=== PATIENT | male | born 1970 | race Caucasian/White ===

== ENCOUNTER 2020-04-24 16:06 | Observation (INO) ==
[2020-04-24 16:54] LABS: INR 1.1; Prothrombin Time 12.7 Seconds (9.4-12.1)
[2020-04-24 16:56] LABS: Basophils % 0.6 %; Eosinophils # 0.1 K/mcL (0.0-0.6); Eosinophils % 1.7 %; Hematocrit 46.1 % (37.5-50.1); Hemoglobin 15.7 g/dL (12.9-16.9); Immature Granulocytes % 0.3 % (0-4); Lymphocytes # 2.1 K/mcL (0.6-4.6); Lymphocytes % 28.4 %; Mean Corpuscular HGB Conc 34.1 g/dL (31.6-35.5); Mean Corpuscular Hemoglobin 31.9 pg (28.0-33.3); Mean Corpuscular Volume 93.7 fL (83.0-100.0); Mean Platelet Volume 9.9 fL (9.4-12.4); Monocytes # 0.6 K/mcL (0.0-1.3); Monocytes % 7.7 %; Neutrophils # 4.4 K/mcL (1.6-8.9); Platelet Count 242 K/mcL (140-400); Red Blood Count 4.92 M/mcL (4.19-5.50); Red Cell Distribution Width 13.2 % (11.5-14.5); Segmented Neutrophils % 61.3 %; White Blood Count 7.2 K/mcL (4.3-11.1)
[2020-04-24 17:12] LABS: Alanine Aminotransferase 41 Units/L (7-52); Albumin/Globulin Ratio 1.5 (1.1-2.2); Alkaline Phosphatase 59 Units/L (34-104); Aspartate Amino Transferase 26 Units/L (13-39); BUN/Creatinine Ratio 17 (6-26); Bilirubin,Total 0.5 mg/dL (0.3-1.0); Blood Urea Nitrogen 18 mg/dL (6-20); Calcium 9.1 mg/dL (8.6-10.3); Carbon Dioxide 24 mEq/L (23-29); Chloride 107 mEq/L (98-107); Globulin 2.6 g/dL (2.4-3.5); Glucose 104 mg/dL (70-105); Magnesium 1.9 mg/dL (1.6-2.6); Osmolality,Calculated 290 (280-300); Sodium 139 mEq/L (136-145); Total Protein 6.6 g/dL (6.4-8.9); Troponin I 0.03 ng/mL (< 0.04); eGFR For African Americans > 60 (> 60); eGFR For Non-African Americans > 60 (> 60)
[2020-04-24] MEDS ORDERED: Naloxone 0.4 MG/ML INJ IVP PRN (17:59)
[2020-04-24] MEDS ORDERED: Ondansetron ODT 4 MG TAB.RAPDIS SL PRN (17:59)
[2020-04-24] MEDS ORDERED: MOM Conc 10 ML UD.LIQ PO PRN (17:59)
[2020-04-24 18:28] LABS: Thyroid Stimulating Hormone 0.787 mcIU/mL (0.340-5.600)
[2020-04-24 19:17] LABS: Adenovirus Not Detected (Not Detect); Bordetella Pertussis Not Detected (Not Detect); Chlamydophila pneumoniae Not Detected (Not Detect); Coronavirus 229E Not Detected (Not Detect); Coronavirus HKU1 Not Detected (Not Detect); Coronavirus NL63 Not Detected (Not Detect); Coronavirus OC43 Not Detected (Not Detect); Human Metapneumovirus Not Detected (Not Detect); Human Rhinovirus/Enterovirus Not Detected (Not Detect); Influenza A Subtype 2009 H1 Not Detected (Not Detect); Influenza B Not Detected (Not Detect); Mycoplasma pneumoniae Not Detected (Not Detect); Parainfluenza Virus 1 Not Detected (Not Detect); Parainfluenza Virus 2 Not Detected (Not Detect); Parainfluenza Virus 3 Not Detected (Not Detect); Parainfluenza Virus 4 Not Detected (Not Detect); Respiratory Syncytial Virus Not Detected (Not Detect); SARS-CoV-2 Not Detected (Not Detect)
[2020-04-24] MEDS ORDERED: *HR* Metoprolol 5 MG/5 ML VIAL IVP ONE (22:05)
[2020-04-25] MEDS: *HR* Heparin 5,000 UNIT/ML VIAL SQ SCH ×3 (02:56→22:09)
[2020-04-25] MEDS: DilTIAZem 50 MG/50 ML IV.SOLN IVC SCH ×3 (02:57→17:11)
[2020-04-25] MEDS ORDERED: *HR* Metoprolol 5 MG/5 ML VIAL IVP ONE (03:39)
[2020-04-25 05:43] LABS: Hemoglobin 15.1 g/dL (12.9-16.9); Mean Corpuscular HGB Conc 32.8 g/dL (31.6-35.5); Mean Corpuscular Hemoglobin 30.6 pg (28.0-33.3); Mean Corpuscular Volume 93.3 fL (83.0-100.0); Mean Platelet Volume 10.1 fL (9.4-12.4); Platelet Count 227 K/mcL (140-400); Red Blood Count 4.93 M/mcL (4.19-5.50); Red Cell Distribution Width 13.2 % (11.5-14.5); White Blood Count 7.2 K/mcL (4.3-11.1)
[2020-04-25 06:07] LABS: BUN/Creatinine Ratio 17 (6-26); Blood Urea Nitrogen 19 mg/dL (6-20); Calcium 9.1 mg/dL (8.6-10.3); Carbon Dioxide 28 mEq/L (23-29); Chloride 106 mEq/L (98-107); Glucose 108 mg/dL (70-105); Osmolality,Calculated 293 (280-300); Potassium 4.6 mEq/L (3.5-5.1); Sodium 140 mEq/L (136-145); eGFR For African Americans > 60 (> 60); eGFR For Non-African Americans > 60 (> 60)
[2020-04-25] MEDS ORDERED: Furosemide 20 MG/2 ML VIAL IVP ONE (07:51)
[2020-04-25] MEDS: Aspirin 81 MG TAB.CHEW PO SCH (08:17)
[2020-04-25] MEDS: Metoprolol XL (24 HR) Succ 50 MG TAB.ER.24H PO SCH ×2 (08:18→08:49)
[2020-04-25] MEDS ORDERED: DilTIAZem CD (24hr) 240 MG CAP.ER.24H PO SCH (17:00)
[2020-04-26] MEDS: DilTIAZem 50 MG/50 ML IV.SOLN IVC SCH (00:58)
[2020-04-26 06:41] LABS: BUN/Creatinine Ratio 18 (6-26); Blood Urea Nitrogen 19 mg/dL (6-20); Calcium 8.9 mg/dL (8.6-10.3); Carbon Dioxide 25 mEq/L (23-29); Chloride 105 mEq/L (98-107); Glucose 109 mg/dL (70-105); Magnesium 1.7 mg/dL (1.6-2.6); Osmolality,Calculated 289 (280-300); Potassium 3.7 mEq/L (3.5-5.1); Sodium 138 mEq/L (136-145); eGFR For African Americans > 60 (> 60); eGFR For Non-African Americans > 60 (> 60)
[2020-04-26] MEDS ORDERED: DilTIAZem CD (24hr) 180 MG CAP.ER.24H PO SCH (07:30)
[2020-04-26] MEDS: Aspirin 81 MG TAB.CHEW PO SCH (08:04)
[2020-04-26] MEDS ORDERED: Magnesium Oxide 400 MG TABLET PO SCH (09:15)
[2020-04-26 10:19] VITALS: BP 130/92
== END 2020-04-26 12:47 | disposition home or self-care (01) ==
LOC: 3BNU 16:06 → EMEROOARM 16:06 → 3BNU 20:10
PROVIDERS: ADMIT Internal Medicine; ATTEND Internal Medicine